=== PATIENT | female | born 1995 | race African-American/Black ===

== ENCOUNTER 2017-11-05 06:12 | Emergency (ER) | payer OTHER ==
[~2017-11-05] VITALS: Ht 162.6 cm; Wt 57.8 kg
[2017-11-05 06:15] VITALS: TEMP 36.7; Ht 162.6 cm; Wt 57.8 kg
[2017-11-05] MEDS ORDERED: FAMOTIDINE 20 MG TAB PO STA (06:32)
[2017-11-05] MEDS ORDERED: SUCRALFATE 1 GM TAB PO STA (06:32)
[2017-11-05] MEDS ORDERED: GI COCKTAIL PO STA (06:32)
[2017-11-05] MEDS ORDERED: LIDOCAINE HCL 2% VISC SOLN 20 ML UDC ONE (06:37)
[2017-11-05] MEDS ORDERED: ALUMINUM/MAGNESIUM SUSP 30 ML UDC ONE (06:37)
[2017-11-05 06:45] VITALS: O2SAT 100
--- NOTE | 2017-11-05 06:53 | EMERGENCY ROOM VISIT NOTE ---
History Report prepared by Carlos: Russell You Under the Supervision of: Dr. Clark Marie M.D. First contact with patient: 06:25 Chief Complaint: OTHER COMPLAINT Stated Complaint: CHEST/BREAST SWELLING History of Present Illness The patient is a 22 year old female who presents to the Emergency Room with complaints of left chest/breast pain that began last night. She rates her pain a 4/10 in severity. She has a past medical history of fibroadenoma. She states that this has never happened to her before. At this that time, she noticed that her left breast began to hurt after she ate food. She examined the area and saw that it was mildly swollen. She used some ice which decreased the swelling, but she is still experiencing pain. She denies any injury, trauma, fevers, chills, shortness of breath, nausea, vomiting, diarrhea, or rash. She notes that she recently stopped taking her control. Source of History: patient Onset: last night Position: chest (left breast) Symptom Intensity: 4/10 Quality: ache Timing: constant Modifying Factors (Worsening): eating Associated Symptoms: No fevers, No chills, No SOB, No nausea, No vomiting, No diarrhea, No rash Note: She denies any injury or trauma. Review of Systems See HPI for pertinent positives & negatives. A total of 10 systems reviewed and were otherwise negative. Past Medical & Surgical Medical Problems: (1) Fibroadenoma Family History Cancer Social History Smoking Status: Never Smoker Smokeless Tobacco Use: No Alcohol Use: none Drug Use: none Marital Status: single Housing Status: lives with roommate Occupation Status: [employer] student Current/Historical Medications No Active Prescriptions or Reported Meds Allergies Coded Allergies: No Known Allergies (Unverified , 11/05/17) Physical Exam Vital Signs Date Time Temp Pulse Resp B/P (MAP) Pulse Ox O2 Delivery O2 Flow Rate FiO2 11/05/17 07:34 74 18 130/90 98 Room Air 11/05/17 06:55 82 11/05/17 06:45 100 Room Air 11/05/17 06:15 36.7 97 18 119/75 96 Room Air Physical Exam GENERAL: Patient is a healthy-appearing well-nourished female HEAD: Normocephalic atraumatic EYES: Ocular movements intact pupils equal and react to light OROPHARYNX mucous membranes are moist no exudates present no erythema or edema present NECK: Supple no nuchal rigidity CHEST: Good equal expansion LUNGS: Clear and equal to auscultation CARDIAC: Normal S1 and S2 ABDOMEN: Soft nontender no guarding BACK: No CVA tenderness EXTREMITIES: No pain upon palpation normal muscle strength in all groups no clubbing cyanosis or edema NEURO: Patient is following commands and answering questions appropriately. Alert and oriented x3 Cranial Nerves 2-12 grossly intact Medical Decision & Procedures ER Provider Diagnostic Interpretation: Radiology results as stated below per my review and radiologist interpretation: CHEST ONE VIEW PORTABLE HISTORY: 22 years-old Female Pt c/o left chest pain acute atypical left-sided chest pain COMPARISON: None available TECHNIQUE: Portable AP view of the chest FINDINGS: Cardiomediastinal and hilar silhouettes are within normal limits. There is no pneumothorax, pleural effusion, focal airspace consolidation or overt pulmonary edema. The bones of the chest appear grossly intact. IMPRESSION: No acute process. The above report was generated using voice recognition software. It may contain grammatical, syntax or spelling errors. Electronically signed by: Jt Melo M.D. 11/05/2017 8:32 AM Dictated Date/Time: 11/05/2017 8:31 AM Laboratory Results 11/05/17 06:45 Red Blood Count 4.26, Mean Corpuscular Volume 89.4, Mean Corpuscular Hemoglobin 30.0, Mean Corpuscular Hemoglobin Concent 33.6, Mean Platelet Volume 10.5, Neutrophils (%) (Auto) 55.2, Lymphocytes (%) (Auto) 35.7, Monocytes (%) (Auto) 5.6, Eosinophils (%) (Auto) 2.8, Basophils (%) (Auto) 0.5, Neutrophils # (Auto) 3.14, Lymphocytes # (Auto) 2.03, Monocytes # (Auto) 0.32, Eosinophils # (Auto) 0.16, Basophils # (Auto) 0.03 11/05/17 06:45 Test 11/05/17 06:45 White Blood Count 5.69 K/uL (4.8-10.8) Red Blood Count 4.26 M/uL (4.2-5.4) Hemoglobin 12.8 g/dL (12.0-16.0) Hematocrit 38.1 % (37-47) Mean Corpuscular Volume 89.4 fL (80-100) Mean Corpuscular Hemoglobin 30.0 pg (25-34) Mean Corpuscular Hemoglobin Concent 33.6 g/dl (32-36) Platelet Count 192 K/uL (130-400) Mean Platelet Volume 10.5 fL (7.4-10.4) Neutrophils (%) (Auto) 55.2 % Lymphocytes (%) (Auto) 35.7 % Monocytes (%) (Auto) 5.6 % Eosinophils (%) (Auto) 2.8 % Basophils (%) (Auto) 0.5 % Neutrophils # (Auto) 3.14 K/uL (1.4-6.5) Lymphocytes # (Auto) 2.03 K/uL (1.2-3.4) Monocytes # (Auto) 0.32 K/uL (0.11-0.59) Eosinophils # (Auto) 0.16 K/uL (0-0.5) Basophils # (Auto) 0.03 K/uL (0-0.2) RDW Standard Deviation 39.9 fL (36.4-46.3) RDW Coefficient of Variation 12.5 % (11.5-14.5) Immature Granulocyte % (Auto) 0.2 % Immature Granulocyte # (Auto) 0.01 K/uL (0.00-0.02) Anion Gap 9.0 mmol/L (3-11) Est Creatinine Clear Calc Drug Dose 131.5 ml/min Estimated GFR () > 150.0 Estimated GFR (Non- 130.8 BUN/Creatinine Ratio 21.8 (10-20) Calcium Level 8.9 mg/dl (8.5-10.1) Total Bilirubin 0.6 mg/dl (0.2-1) Direct Bilirubin 0.1 mg/dl (0-0.2) Aspartate Amino Transf (AST/SGOT) 13 U/L (15-37) Alanine Aminotransferase (ALT/SGPT) 19 U/L (12-78) Alkaline Phosphatase 61 U/L (45-117) Total Creatine Kinase 71 U/L (26-192) Creatine Kinase MB < 0.5 ng/ml (0.5-3.6) Creatine Kinase MB Ratio (0-3.0) Troponin I < 0.015 ng/ml (0-0.045) Total Protein 7.4 gm/dl (6.4-8.2) Albumin 3.9 gm/dl (3.4-5.0) Lipase 102 U/L (73-393) Labs reviewed by ED physician. Medications Administered Medications (Trade) Dose Ordered Sig/Patricia Route Start Time Stop Time Status Last Admin Dose Admin Famotidine (Pepcid Tab) 20 mg NOW STAT PO 11/05/17 06:32 11/05/17 06:34 DC 11/05/17 06:41 20 MG Sucralfate (Carafate Tab) 1 gm NOW STAT PO 11/05/17 06:32 11/05/17 06:34 DC 11/05/17 06:41 1 GM Al Hydroxide/Mg Hydroxide (Maalox Susp) 30 ml STK-MED ONCE .ROUTE 11/05/17 06:37 11/05/17 06:38 DC 11/05/17 06:42 30 ML Lidocaine HCl (Viscous Lidocaine 2% Soln) 20 ml STK-MED ONCE .ROUTE 11/05/17 06:37 11/05/17 06:38 DC 11/05/17 06:37 20 ML Potassium Chloride (Jane Ciel Elix) 70 meq NOW STAT PO 11/05/17 07:15 11/05/17 07:16 DC 11/05/17 07:32 70 MEQ Albuterol Sulfate (Ventolin 0.083% 2.5MG/3ML Neb) 2.5 mg NOW STAT INH 11/05/17 07:22 11/05/17 07:23 DC 11/05/17 07:32 2.5 MG ECG Indication: chest pain Rate (beats per minute): 74 Rhythm: sinus rhythm Findings: 1st degree AV block, no acute ischemic change, no ectopy ED Course 0625: Past medical records reviewed. The patient was evaluated in room A4. A complete history and physical examination was performed. 0632: Ordered Carafate Tab 1 gm PO, Pepcid Tab 20 mg PO, Gi Cocktail 24 ml PO 0640: The patient has refused her chest x-ray at this time because her mother does not want her to get one. I asked if she would like me to speak with her mother at this time, but she denied. 0715: Ordered Potassium Chloride 70 meq PO 0722: Ordered Albuterol Sulfate 2.5 mg INH 0730: The patient states that she discussed the x-ray further with her mother and would now like to receive one. 0851: Upon reexamination the patient is resting. I discussed results and treatment plan with the patient. She verbalizes agreement and understanding. The patient is ready for discharge. Medical Decision Differential diagnosis: Etiologies such as cardiac ischemia, aortic dissection, pulmonary embolism, pneumonia, pneumothorax, musculoskeletal, infections, pericarditis, myocarditis , esophageal rupture, gastrointestinal, as well as others were entertained. This is a 22-year-old female who presents emergency department complaining of left-sided chest pain. I will note that the patient recently stopped her control. Due to this and the fact that the patient is not tachycardic nor hypoxic here in emergency department my suspicion of a PE is exceptionally low. In addition the patient does not wish to have any radiation exposure. I offered to discuss our options with the patient along with her mother however the patient refused to let me discuss it with her mother. Regardless she has a normal CBC normal renal profile normal liver profile normal lipase normal cardiac enzymes normal EKG. In addition the patient's pain started after eating a heavy meal last evening. She was given a GI cocktail Pepcid and Carafate with much improvement in her symptoms. Based on these findings I feel that the pain is most likely esophageal in nature. I offered to have the patient follow-up with breast clinic however she refused this. I did stress the need for follow-up with [facility]. Medication Reconcilliation Current Medication List: was personally reviewed by me Blood Pressure Screening Patient's blood pressure: Normal blood pressure Blood pressure disposition: Did not require urgent referral Impression Primary Impression: Chest pain Scribe Attestation The scribe's documentation has been prepared under my direction and personally reviewed by me in its entirety. I confirm that the note above accurately reflects all work, treatment, procedures, and medical decision making performed by me. Departure Information Dispostion Home / Self-Care Prescriptions No Active Prescriptions or Reported Meds Referrals [facility] Services Forms HOME CARE DOCUMENTATION FORM, IMPORTANT VISIT INFORMATION, WORK / SCHOOL INSTRUCTIONS Patient Instructions [facility] Additional Instructions Clear liquid diet next 48 hours Take 5 ml Maalox before every meal and at bedtime You have been examined and treated today on an emergency basis only. This is not a substitute for, or an effort to provide, complete comprehensive medical care. It is impossible to recognize and treat all injuries or illnesses in a single emergency department visit. It is therefore important that you follow up closely with [facility]. Call as soon as possible for an appointment. Thank you for your time and consideration. I look forward to speaking with you again soon. Please don't hesitate to call us if you have any questions. Problem Qualifiers Primary Impression: Chest pain Chest pain type: unspecified Qualified Codes: R07.9 - Chest pain, unspecified
[2017-11-05 06:55] LABS: BASO % 0.5 %; BASO ABS # 0.03 K/uL (0-0.2); EOS % 2.8 %; EOS ABS # 0.16 K/uL (0-0.5); HEMATOCRIT 38.1 % (37-47); HEMOGLOBIN 12.8 g/dL (12.0-16.0); IG# 0.01 K/uL (0.00-0.02); LYMPH % 35.7 %; LYMPH ABS # 2.03 K/uL (1.2-3.4); MEAN CELL VOLUME 89.4 fL (80-100); MEAN CORPUSCULAR HGB CONC 33.6 g/dl (32-36); MEAN PLATELET VOLUME 10.5 fL (7.4-10.4); MONO % 5.6 %; MONO ABS # 0.32 K/uL (0.11-0.59); NEUT % 55.2 %; NEUT ABS # 3.14 K/uL (1.4-6.5); PLATELET COUNT 192 K/uL (130-400); RED CELL DISTRIBUTION WIDTH CV 12.5 % (11.5-14.5); RED CELL DISTRIBUTION WIDTH SD 39.9 fL (36.4-46.3); WHITE BLOOD COUNT 5.69 K/uL (4.8-10.8)
[2017-11-05 07:11] LABS: ALBUMIN 3.9 gm/dl (3.4-5.0); BLOOD UREA NITROGEN 13 mg/dl (7-18); CALCIUM 8.9 mg/dl (8.5-10.1); CARBON DIOXIDE 25 mmol/L (21-32); CREATININE 0.58 mg/dl (0.60-1.20); GLUCOSE 107 mg/dl (70-99); LIPASE 102 U/L (73-393); POTASSIUM 3.3 mmol/L (3.5-5.1); SODIUM 138 mmol/L (136-145)
[2017-11-05] MEDS ORDERED: POTASSIUM CHLORIDE 20 MEQ/15 ML UDC PO STA (07:15)
[2017-11-05 07:16] LABS: ALKALINE PHOSPHATASE 61 U/L (45-117); ALT/SGPT 19 U/L (12-78); AST/SGOT 13 U/L (15-37); CKMB < 0.5 ng/ml (0.5-3.6); TOTAL PROTEIN 7.4 gm/dl (6.4-8.2)
[2017-11-05] MEDS ORDERED: ALBUTEROL 0.083% NEBU SOLN 3 ML VIAL INH STA (07:22)
--- NOTE | 2017-11-05 08:33 | DIAGNOSTIC IMAGING REPORT ---
CHEST ONE VIEW PORTABLE HISTORY: 22 years-old Female Pt c/o left chest pain acute atypical left-sided chest pain COMPARISON: None available TECHNIQUE: Portable AP view of the chest FINDINGS: Cardiomediastinal and hilar silhouettes are within normal limits. There is no pneumothorax, pleural effusion, focal airspace consolidation or overt pulmonary edema. The bones of the chest appear grossly intact. IMPRESSION: No acute process. The above report was generated using voice recognition software. It may contain grammatical, syntax or spelling errors. Electronically signed by: Jt Melo M.D. 11/05/2017 8:32 AM Dictated Date/Time: 11/05/2017 8:31 AM
[2017-11-05 08:54] VITALS: BP 110/80; PULSE 89; O2SAT 96
== END 2017-11-05 08:55 | disposition home or self-care (01) ==
LOC: C.EDB 06:13 → C.EDA 08:55
DX: R07.9 Chest pain, unspecified (principal); I44.0 Atrioventricular block, first degree; Z86.018 Personal history of other benign neoplasm; Z80.9 Family history of malignant neoplasm, unspecified

== ENCOUNTER 2017-11-08 09:40 | Emergency (ER) | payer OTHER ==
[~2017-11-08] VITALS: Ht 160 cm; Wt 57.2 kg
[2017-11-08 09:43] VITALS: TEMP 36.6; Ht 160 cm; Wt 57.2 kg
[2017-11-08] MEDS ORDERED: KETOROLAC TROMETHAMINE 30 MG/ML VIAL IV STA (10:09)
--- NOTE | 2017-11-08 10:14 | EMERGENCY ROOM VISIT NOTE ---
History Report prepared by Carlos: Yakov Mcfadden Under the Supervision of: Dr. Dat Lester M.D. First contact with patient: 10:01 Chief Complaint: CHEST PAIN Stated Complaint: CHEST PAIN Nursing Triage Summary: Patient states "I've had chest pain since Saturday. I came here on Saturday and they did not see anything but I am still having chest pain, weakness and shortness of breath." History of Present Illness The patient is a 22 year old female who presents to the Emergency Room with complaints of persistent chest pains that the patient has been experiencing since Saturday morning, 4 days prior to arrival. The patient presented to the ED on Saturday morning for her symptoms and had a negative chest x-ray. She scheduled a follow-up appointment with [facility], but was not able to get in. She called today and they suggested she return to the ED due to her persistent symptoms. She describes her current pain as a "pressure" in her central chest. The patient also believes she can feel her heart beating rapidly. She tried TUMS and Anti-Acid which did not improve her condition. The patient just returned from a 4 month trip to [facility]. She has been back in country for 1 month. Source of History: patient Onset: 4 days [employer] Position: chest Quality: pressure Timing: other (persistent) Review of Systems See HPI for pertinent positives & negatives. A total of 10 systems reviewed and were otherwise negative. Past Medical & Surgical Medical Problems: (1) Fibroadenoma Old medical records were reviewed. Nurse's notes were reviewed and I agree with. Family History Cancer Social History Smoking Status: Never Smoker Alcohol Use: none Drug Use: none Marital Status: single Housing Status: lives with roommate Occupation Status: [employer] student Current/Historical Medications No Active Prescriptions or Reported Meds Allergies Coded Allergies: No Known Allergies (Unverified , 11/08/17) Physical Exam Vital Signs Date Time Temp Pulse Resp B/P (MAP) Pulse Ox O2 Delivery O2 Flow Rate FiO2 11/08/17 12:30 75 18 109/76 98 11/08/17 11:50 88 20 105/73 99 Room Air 11/08/17 10:40 78 18 115/72 98 Room Air 11/08/17 10:30 70 11/08/17 09:43 36.6 87 18 133/96 97 Room Air Physical Exam General: Non-ill appearing slender young female in no acute distress. HEENT: Normal cephalic atraumatic. Pupils are equal round and reactive to light. Extraocular movements are intact. Oropharynx is pink with moist mucous membranes. No swelling of the mouth lips or tongue. Neck: Supple with a midline trachea. No meningeal signs or stiffness, no JVD or bruits. No Stridor. Chest: There is reproducible pain to palpation in the upper chest. More so on the left. Clear to auscultation bilaterally. No wheezes or rhonchi. No increased work of breathing. Heart: regular rate and rhythm. Abdomen: Soft nontender, nondistended without rebound guarding or rigidity. Extremities: No cyanosis clubbing or edema. No calf tenderness or assymetry Spine/Back. Non tender to palpation. No CVA tenderness Skin: Good turgor without rashes. Neurologic exam: Cranial nerves two through 12 are intact. Motor and sensation are intact and symmetrical throughout. Medical Decision & Procedures ER Provider Diagnostic Interpretation: Radiology results as stated below per my review and radiologist interpretation: CHEST ONE VIEW PORTABLE CLINICAL HISTORY: CHEST PAIN dyspnea COMPARISON STUDY: 11/05/2017 FINDINGS: The bones soft tissues and hemidiaphragms are normal. The cardiomediastinal silhouette is normal. The lungs are clear. The pulmonary vasculature is normal. IMPRESSION: Negative chest. The above report was generated using voice recognition software. It may contain grammatical, syntax or spelling errors. Electronically signed by: Conrad Burdick M.D. 11/08/2017 10:35 AM Dictated Date/Time: 11/08/2017 10:35 AM Laboratory Results 11/08/17 10:30 Red Blood Count 4.06, Mean Corpuscular Volume 89.2, Mean Corpuscular Hemoglobin 30.8, Mean Corpuscular Hemoglobin Concent 34.5, Mean Platelet Volume 11.0, Neutrophils (%) (Auto) 61.5, Lymphocytes (%) (Auto) 27.8, Monocytes (%) (Auto) 6.4, Eosinophils (%) (Auto) 3.5, Basophils (%) (Auto) 0.4, Neutrophils # (Auto) 2.96, Lymphocytes # (Auto) 1.34, Monocytes # (Auto) 0.31, Eosinophils # (Auto) 0.17, Basophils # (Auto) 0.02 11/08/17 10:30 Test 11/08/17 10:30 11/08/17 10:35 White Blood Count 4.82 K/uL (4.8-10.8) Red Blood Count 4.06 M/uL (4.2-5.4) Hemoglobin 12.5 g/dL (12.0-16.0) Hematocrit 36.2 % (37-47) Mean Corpuscular Volume 89.2 fL (80-100) Mean Corpuscular Hemoglobin 30.8 pg (25-34) Mean Corpuscular Hemoglobin Concent 34.5 g/dl (32-36) Platelet Count 182 K/uL (130-400) Mean Platelet Volume 11.0 fL (7.4-10.4) Neutrophils (%) (Auto) 61.5 % Lymphocytes (%) (Auto) 27.8 % Monocytes (%) (Auto) 6.4 % Eosinophils (%) (Auto) 3.5 % Basophils (%) (Auto) 0.4 % Neutrophils # (Auto) 2.96 K/uL (1.4-6.5) Lymphocytes # (Auto) 1.34 K/uL (1.2-3.4) Monocytes # (Auto) 0.31 K/uL (0.11-0.59) Eosinophils # (Auto) 0.17 K/uL (0-0.5) Basophils # (Auto) 0.02 K/uL (0-0.2) RDW Standard Deviation 39.9 fL (36.4-46.3) RDW Coefficient of Variation 12.4 % (11.5-14.5) Immature Granulocyte % (Auto) 0.4 % Immature Granulocyte # (Auto) 0.02 K/uL (0.00-0.02) D-Dimer < 190 ug/L FEU (0-500) Anion Gap 8.0 mmol/L (3-11) Est Creatinine Clear Calc Drug Dose 137.7 ml/min Estimated GFR () > 150.0 Estimated GFR (Non- 134.8 BUN/Creatinine Ratio 18.7 (10-20) Calcium Level 9.4 mg/dl (8.5-10.1) Total Bilirubin 0.7 mg/dl (0.2-1) Direct Bilirubin 0.2 mg/dl (0-0.2) Aspartate Amino Transf (AST/SGOT) 16 U/L (15-37) Alanine Aminotransferase (ALT/SGPT) 18 U/L (12-78) Alkaline Phosphatase 58 U/L (45-117) Total Creatine Kinase 75 U/L (26-192) Creatine Kinase MB < 0.5 ng/ml (0.5-3.6) Creatine Kinase MB Ratio (0-3.0) Total Protein 7.2 gm/dl (6.4-8.2) Albumin 3.9 gm/dl (3.4-5.0) Lipase 93 U/L (73-393) Thyroid Stimulating Hormone (TSH) 0.792 uIu/ml (0.300-4.500) Human Chorionic Gonadotropin, Qual NEG (NEG) Bedside Troponin I < 0.030 ng/ml (0-0.045) Laboratory studies as stated above per my review. Medications Administered Medications (Trade) Dose Ordered Sig/Patricia Route Start Time Stop Time Status Last Admin Dose Admin Ketorolac Tromethamine (Toradol Inj) 30 mg NOW STAT IV 11/08/17 10:09 11/08/17 10:12 DC 11/08/17 10:40 30 MG ECG Indication: chest pain Rate (beats per minute): 75 Rhythm: sinus with SA Findings: no acute ischemic change Comparison ECG Date: 11/05 Change: no significant change Change: Patient's electrocardiogram interpreted by me. ED Course 1002: Past medical records reviewed. The patient was evaluated in room B11, and a complete history and physical examination were performed. 1009: Ordered Toradol 30 mg IV. 1103: The patient is resting comfortably at this time. She is feeling better after Toradol. 1215: Upon reevaluation, the patient is resting in bed. I discussed the results and treatment plan with her. She verbalized agreement of the treatment plan. The patient was discharged home. Medical Decision Differential Diagnosis includes; Cardiac Disease, costochondritis, pulmonary embolism, pneumonia, CHF, electrolyte or metabolic abnormality. This patient comes in as described above. She was placed in room B 11. She is here for treatment and evaluation of chest pain. it's anterior it's gone from one side or the other and is now in the central area. it is reproducible upon palpation. She's had no trauma. She was here the other day an extensive workup done which I reviewed. EKG was obtained which shows no acute ischemic changes or ectopy. Chest x-ray today was unremarkable. She has no acute for light or metabolic abnormality. test was negative. Cardiac biomarkers are negative. D-dimer was within normal limits and in a low pretest probability study makes PE highly unlikely. She was given IV Toradol and she is feeling a lot better. I think is most likely is costochondritis. She has no tenderness to the abdomen or anything to suggest GI issues or gallbladder disease. She will be discharged home. She was or turn if: increasing pain, worsening of symptoms, shortness of breath, any new problems or concerns. She is happy with plan discharge to home. Impression Primary Impression: Precordial chest pain Additional Impression: Costochondritis Scribe Attestation The scribe's documentation has been prepared under my direction and personally reviewed by me in its entirety. I confirm that the note above accurately reflects all work, treatment, procedures, and medical decision making performed by me. Departure Information Dispostion Home / Self-Care Prescriptions No Active Prescriptions or Reported Meds Referrals [facility] ([facility]) Forms HOME CARE DOCUMENTATION FORM, IMPORTANT VISIT INFORMATION Patient Instructions My [facility] Additional Instructions Rest. Drink plenty of fluids. Use ibuprofen 400 mg every 6 hours, take with food Return if: Increasing pain, worsening of symptoms, shortness of breath, fever chills, any new problems or concerns. Follow-up with the student health clinic on Saturday for recheck or return here over the weekend if symptoms worsen Problem Qualifiers
--- NOTE | 2017-11-08 10:37 | DIAGNOSTIC IMAGING REPORT ---
CHEST ONE VIEW PORTABLE CLINICAL HISTORY: CHEST PAIN dyspnea COMPARISON STUDY: 11/05/2017 FINDINGS: The bones soft tissues and hemidiaphragms are normal. The cardiomediastinal silhouette is normal. The lungs are clear. The pulmonary vasculature is normal. IMPRESSION: Negative chest. The above report was generated using voice recognition software. It may contain grammatical, syntax or spelling errors. Electronically signed by: Conrad Burdick M.D. 11/08/2017 10:35 AM Dictated Date/Time: 11/08/2017 10:35 AM
[2017-11-08 11:08] LABS: BASO % 0.4 %; BASO ABS # 0.02 K/uL (0-0.2); EOS % 3.5 %; EOS ABS # 0.17 K/uL (0-0.5); HEMATOCRIT 36.2 % (37-47); HEMOGLOBIN 12.5 g/dL (12.0-16.0); IG# 0.02 K/uL (0.00-0.02); LYMPH % 27.8 %; LYMPH ABS # 1.34 K/uL (1.2-3.4); MEAN CELL VOLUME 89.2 fL (80-100); MEAN CORPUSCULAR HEMOGLOBIN 30.8 pg (25-34); MEAN CORPUSCULAR HGB CONC 34.5 g/dl (32-36); MONO % 6.4 %; MONO ABS # 0.31 K/uL (0.11-0.59); NEUT % 61.5 %; NEUT ABS # 2.96 K/uL (1.4-6.5); PLATELET COUNT 182 K/uL (130-400); RED CELL DISTRIBUTION WIDTH CV 12.4 % (11.5-14.5); RED CELL DISTRIBUTION WIDTH SD 39.9 fL (36.4-46.3); WHITE BLOOD COUNT 4.82 K/uL (4.8-10.8)
[2017-11-08 11:25] LABS: ALBUMIN 3.9 gm/dl (3.4-5.0); ALT/SGPT 18 U/L (12-78); BLOOD UREA NITROGEN 10 mg/dl (7-18); CALCIUM 9.4 mg/dl (8.5-10.1); CARBON DIOXIDE 25 mmol/L (21-32); CREATININE 0.53 mg/dl (0.60-1.20); GLUCOSE 74 mg/dl (70-99); LIPASE 93 U/L (73-393); POTASSIUM 3.5 mmol/L (3.5-5.1); SODIUM 135 mmol/L (136-145)
[2017-11-08 11:36] LABS: ALKALINE PHOSPHATASE 58 U/L (45-117); AST/SGOT 16 U/L (15-37); CKMB < 0.5 ng/ml (0.5-3.6); TOTAL PROTEIN 7.2 gm/dl (6.4-8.2)
[2017-11-08 12:30] VITALS: BP 109/76; PULSE 75; O2SAT 98
== END 2017-11-08 12:31 | disposition home or self-care (01) ==
LOC: C.EDB 09:42
DX: R07.2 Precordial pain (principal); M94.0 Chondrocostal junction syndrome [Tietze]; Z80.9 Family history of malignant neoplasm, unspecified